=== PATIENT | female | born 1960 | race Hispanic/Latino ===

== ENCOUNTER → 2018-01-30 | Outpatient (CLI) | payer MEDICARE ==
[~2018-01-30] MED LIST: DIATR MEGLU/DIATRIZOATE SODIUM 30 ML BOTTLE ONE
== END | disposition home or self-care (01) ==
LOC: RAH 15:37
PROVIDERS: ATTEND Internal Medicine Gastroenterology
DX: K94.20 Gastrostomy complication, unspecified (principal)
CPT/HCPCS: 74018; Q9963

== ENCOUNTER → 2018-03-07 | Outpatient (CLI) | payer MEDICARE | END | disposition home or self-care (01) | LOC: RAH 15:54 | PROVIDERS: ATTEND Internal Medicine | DX: K94.20 Gastrostomy complication, unspecified (principal) | CPT/HCPCS: 74018; Q9963 ==

== ENCOUNTER 2020-09-21 11:05 | Day surgery (SDC) | payer MEDICARE ==
[2020-09-21] VITALS (10 sets, daily range): BP systolic 116–144; BP diastolic 70–88
[~2020-09-21] VITALS: Ht 160 cm; Wt 72.6 kg
[2020-09-21] MEDS ORDERED: PROPOFOL 10 MG/ML 20ML VIAL IV ONE ×2 (12:16)
[2020-09-21] MEDS ORDERED: SODIUM CHLORIDE 0.9% 1000ML 1,000 ML IV ONE (12:54)
[2020-09-21] MEDS ORDERED: INSU100V12 SQ (13:20)
[2020-09-21] MEDS ORDERED: AMLO-258 PO (13:20)
[2020-09-21] MEDS ORDERED: ATOR40TA71 PO (13:20)
== END 2020-09-21 13:12 | disposition home or self-care (01) ==
LOC: DAH 11:05 → ENDO 11:05
PROVIDERS: ATTEND Internal Medicine Gastroenterology
DX: K29.50 Unspecified chronic gastritis without bleeding (principal); Z20.828 Contact with and (suspected) exposure to other viral communicable diseases; K20.90 Esophagitis, unspecified without bleeding; I10 Essential (primary) hypertension; E11.9 Type 2 diabetes mellitus without complications; E66.9 Obesity, unspecified; Z86.73 Personal history of transient ischemic attack (TIA), and cerebral infarction without residual deficits; Z90.710 Acquired absence of both cervix and uterus; Z79.899 Other long term (current) drug therapy; Z68.32 Body mass index [BMI] 32.0-32.9, adult
CPT/HCPCS: 43239; 82948; 88305; 88342; A4215; A4221; A4222; A4223; A4606; A4620; A4649; A4657; A4663; C9803; J2704 ×2; J7030; U0003

== ENCOUNTER → 2020-10-08 | Outpatient (CLI) | payer MEDICARE ==
[~2020-10-08] MED LIST changes: +AMLO-258 PO; +ATOR40TA71 PO; +INSU100V12 SQ
== END | disposition home or self-care (01) ==
LOC: RAH 08:59
PROVIDERS: ATTEND Internal Medicine Gastroenterology
DX: K80.20 Calculus of gallbladder without cholecystitis without obstruction (principal); K31.6 Fistula of stomach and duodenum
CPT/HCPCS: 74150; Q9963 ×2

== ENCOUNTER 2022-11-14 06:58 | Day surgery (SDC) | payer OTHER ==
[2022-11-10 11:19] LABS: BASOPHILS % (AUTO) 0.5 % (0.0-5.0); EOSINOPHILS % (AUTO) 2.6 % (0.0-8.0); HEMATOCRIT 39.7 % (36-48); LYMPHOCYTES % (AUTO) 32.1 % (21.0-51.0); MEAN CORPUSCULAR HEMOGLOBIN 29.7 pg (27.0-33.0); MEAN CORPUSCULAR HGB CONC 32.7 g/dL (32.0-36.0); MEAN CORPUSCULAR VOLUME 90.6 fL (79-99); MONOCYTES % (AUTO) 6.5 % (3.0-13.0); NEUTROPHILS % (AUTO) 58.1 % (40.0-77.0); PLATELET COUNT (AUTO) 249 K/uL (130-400); RED BLOOD CELL COUNT(AUTO) 4.38 MIL/uL (4.00-5.50); RED CELL DISTRIBUTION WIDTH 12.5 % (11.0-15.5); WHITE BLOOD COUNT (AUTO) 8.4 K/uL (4.8-10.8)
[2022-11-10 11:27] LABS: CREATININE 1.2 mg/dL (0.5-1.5); POTASSIUM 4.2 mmol/L (3.5-5.1)
[2022-11-10 11:31] VITALS: BP 174/101
[2022-11-14] VITALS (17 sets, daily range): BP systolic 100–141; BP diastolic 51–119
[~2022-11-14] VITALS: Ht 157.5 cm; Wt 80.4 kg
[~2022-11-14 06:58] MED LIST changes: +BUPIVACAINE/PF 0.25% 10ML VIAL IJ ONE; +CEFAZOLIN SODIUM 2 GM VIAL IVPB SCH; +CLOP75TA32 PO; -DIATR MEGLU/DIATRIZOATE SODIUM 30 ML BOTTLE ONE; +DULA0.75 SQ; +LORA10TA7 PO; +LOSA100T58 PO; +METF-444 PO
[2022-11-14] MEDS ORDERED: 0.9%NACL 1000ML 1,000 ML IV ONE (07:36)
[2022-11-14] MEDS ORDERED: SUCCINYLCHOLINE 200MG/10ML SYR ONE (07:46)
[2022-11-14] MEDS ORDERED: LIDOCAINE PF 100MG/5ML (2%) SYRINGE 5ML ONE (07:46)
[2022-11-14] MEDS ORDERED: ROCURONIUM 10MG/1ML SYR 10 MG/ML ML ONE (07:47)
[2022-11-14] MEDS ORDERED: FENTANYL CITRATE PF 50 MCG/1 ML 2ML VIAL ONE (07:47)
[2022-11-14] MEDS ORDERED: GLYCOPYRROLATE 1 MG/5 ML SYRINGE ONE (07:47)
[2022-11-14] MEDS ORDERED: PROPOFOL 10 MG/ML 20ML VIAL IV ONE (07:47)
[2022-11-14] MEDS ORDERED: PHENYLEPHRINE HCL 10 MG/ML 1ML VIAL IV ONE (07:49)
[2022-11-14] MEDS ORDERED: CEFAZOLIN SODIUM 2 GM VIAL IVPB ONE (08:10)
[2022-11-14] MEDS ORDERED: NEOSTIGMINE 5MG/5ML SYR IV ONE (08:39)
[2022-11-14] MEDS ORDERED: ONDANSETRON 4MG INJ ONE (08:39)
[2022-11-14] MEDS ORDERED: IBUPROFEN 800 MG TAB PO SCH (11:00)
[2022-11-14] MEDS ORDERED: HYDROMORPHONE 1 MG INJ ONE (11:25)
[2022-11-14] MEDS ORDERED: HYDROMORPHONE 0.5 MG SYG (0.5MG/0.5ML) IVP SCH (12:00)
== END 2022-11-14 12:08 | disposition home or self-care (01) ==
LOC: DAH 06:58 → UNDOADMIN 06:58 → DAHIP 06:58 → EDSTATUS 09:00 → DAH 12:08
PROVIDERS: ATTEND Surgery
DX: K31.6 Fistula of stomach and duodenum (principal); Z20.822 Contact with and (suspected) exposure to COVID-19; I10 Essential (primary) hypertension; E78.5 Hyperlipidemia, unspecified; E11.9 Type 2 diabetes mellitus without complications; Z86.73 Personal history of transient ischemic attack (TIA), and cerebral infarction without residual deficits; Z79.899 Other long term (current) drug therapy; Z79.84 Long term (current) use of oral hypoglycemic drugs
CPT/HCPCS: 93005; 87426; 80048; 85025; 36415; 43870; 82948; A6260; A4663; A4452; J3010; J1170; J0330; J3490 ×2; J2710; J7030; J2001; J2704; J2405; J2370; J0690 ×3; A4215; A4223; A4222; A4221

== ENCOUNTER → 2022-12-07 | Outpatient (CLI) | payer OTHER ==
[~2022-12-07] MED LIST changes: -BUPIVACAINE/PF 0.25% 10ML VIAL IJ ONE; -CEFAZOLIN SODIUM 2 GM VIAL IVPB SCH
== END | disposition home or self-care (01) ==
LOC: RAH 11:22
DX: Z12.31 Encounter for screening mammogram for malignant neoplasm of breast (principal)
CPT/HCPCS: 77067

== ENCOUNTER → 2024-05-15 | Outpatient (CLI) | payer OTHER ==
[~2024-05-15] MED LIST changes: -LOSA100T58 PO; +LOSA100T59 PO
== END | disposition home or self-care (01) ==
LOC: RAH 10:00
PROVIDERS: ATTEND Nurse Practitioner Family
DX: Z12.31 Encounter for screening mammogram for malignant neoplasm of breast (principal); R92.333 Mammographic heterogeneous density, bilateral breasts; K76.0 Fatty (change of) liver, not elsewhere classified; R94.5 Abnormal results of liver function studies; R16.0 Hepatomegaly, not elsewhere classified; K80.20 Calculus of gallbladder without cholecystitis without obstruction; R92.30 Dense breasts, unspecified
CPT/HCPCS: 76705; 77067

== ENCOUNTER → 2024-08-08 | Outpatient (CLI) | payer OTHER ==
--- NOTE | 2024-08-08 16:40 | HMCIMG ---
CHEST 2VWS REASON: CHOLELITHASIS WITHOUT OBSTRUCTION COMPARISON: 10/18/2022 FINDINGS: Two views of the chest were obtained. Lungs are clear. Heart size is normal. There is no pulmonary vascular congestion. Mediastinum and bony thorax appear unremarkable. IMPRESSION: Normal two view chest x-ray.
== END | disposition home or self-care (01) ==
LOC: RAH 16:03
PROVIDERS: ATTEND Internal Medicine
DX: K80.20 Calculus of gallbladder without cholecystitis without obstruction (principal); K76.0 Fatty (change of) liver, not elsewhere classified
CPT/HCPCS: 71046

== ENCOUNTER 2024-12-12 06:13 | Day surgery (SDC) | payer OTHER ==
[2024-12-11 15:05] LABS: BASOPHILS # (AUTO) 0.07 K/uL (0.00-0.20); BASOPHILS % (AUTO) 0.7 % (0.0-5.0); EOSINOPHILS # (AUTO) 0.27 K/uL (0.00-0.70); EOSINOPHILS % (AUTO) 2.6 % (0.0-8.0); HEMATOCRIT 38.5 % (36-48); IMMATURE GRANULOCYTE ABSOLUTE 0.05 K/uL (0-1); LYMPHOCYTES # (AUTO) 3.4 K/uL (1.0-4.8); LYMPHOCYTES % (AUTO) 32.8 % (21.0-51.0); MEAN CORPUSCULAR HEMOGLOBIN 29.4 pg (27.0-33.0); MEAN CORPUSCULAR HGB CONC 33.2 g/dL (32.0-36.0); MEAN CORPUSCULAR VOLUME 88.5 fL (79-99); MONOCYTES # (AUTO) 0.7 K/uL (0.1-1.0); MONOCYTES % (AUTO) 6.3 % (3.0-13.0); NEUTROPHILS # (AUTO) 5.9 K/uL (1.8-7.7); NEUTROPHILS % (AUTO) 57.1 % (40.0-77.0); PLATELET COUNT (AUTO) 261 K/uL (130-400); RED BLOOD CELL COUNT(AUTO) 4.35 MIL/uL (4.00-5.50); RED CELL DISTRIBUTION WIDTH 13.1 % (11.0-15.5); WHITE BLOOD COUNT (AUTO) 10.3 K/uL (4.8-10.8)
[2024-12-11 15:12] LABS: CREATININE 1.2 mg/dL (0.5-1.0); POTASSIUM 4.3 mmol/L (3.5-5.1)
[2024-12-11 15:14] LABS: INR 1.03 (0.85-1.15); PROTHROMBIN TIME 10.9 SEC (9.6-11.6)
[2024-12-11 15:16] LABS: PARTIAL THROMBOPLASTIN TIME 25.3 SEC (26.3-35.5)
[2024-12-11 15:51] VITALS: BP 185/100; PULSE 85; RESP 18; TEMP 97.9
--- NOTE | 2024-12-11 15:56 | NUR ---
report pt reported she has only had breakfast. as per dr james garcia for pt to have dinner then clear liquids after that until midnight. pt and sister given instructions and voiced understanding
[2024-12-12] VITALS (16 sets, daily range): BP systolic 82–119; BP diastolic 39–65; PULSE 52–82; RESP 6–16; TEMP 97–97.5
[~2024-12-12] VITALS: Ht 157.5 cm; Wt 80.0 kg
[~2024-12-12 06:13] MED LIST changes: -DULA0.75 SQ; -INSU100V12 SQ; +INSU300I SQ; +LINA145C PO; -LORA10TA7 PO; +trulicity SQ
[2024-12-12] MEDS: ceFAZolin SODIUM 2 GM VIAL ONE (06:25)
[2024-12-12] MEDS: 0.9%NACL 1000ML 1,000 ML IV ONE (06:25)
[2024-12-12] MEDS ORDERED: 0.9%NACL 1000ML 1,000 ML IV SCH (06:30)
[2024-12-12] MEDS ORDERED: FAMOTIDINE 20MG VIAL IV ONE (06:53)
[2024-12-12] MEDS ORDERED: acetaMINOPHEN 100 ML ONE (06:53)
[2024-12-12] MEDS ORDERED: ketaMINE 50MG/ML SYRINGE 50 MG/ML DISP.SYRIN ONE (06:57)
[2024-12-12] MEDS ORDERED: proPOFol 10 MG/ML 20ML VIAL IV ONE (07:07)
[2024-12-12] MEDS ORDERED: LIDOCAINE PF 100MG/5ML (2%) SYRINGE 5ML ONE (07:07)
[2024-12-12] MEDS ORDERED: rocuRONium bROMide 10MG/1ML 5ML VL ONE (07:08)
[2024-12-12] MEDS ORDERED: FENTanyl CITRate PF 50 MCG/1 ML 2ML VIAL ONE (07:08)
[2024-12-12] MEDS ORDERED: INDOCYANINE GREEN 25 MG VIAL IJ ONE (08:04)
[2024-12-12] MEDS ORDERED: dexaMETHasone SOD PHOSPHATE 10MG/ML 1ML VIAL ONE (08:16)
[2024-12-12] MEDS ORDERED: ondanSETRON 4MG INJ ONE (08:16)
[2024-12-12] MEDS ORDERED: BUPIvacaine/PF 0.25% 30ML VIAL IJ ONE (08:21)
[2024-12-12] MEDS ORDERED: phenylEPHRINE HCL 10 MG/ML 1ML VIAL IV ONE (08:27)
[2024-12-12] MEDS: ceFAZolin SODIUM 2 GM VIAL IVPB ONE (08:35)
[2024-12-12] MEDS ORDERED: NEOSTIGMINE METHYLSULFATE 1MG/ML IV ONE (08:54)
[2024-12-12] MEDS ORDERED: GLYCOPYRROLATE 0.2 MG/ML 5 ML VIAL ONE (08:54)
--- NOTE | 2024-12-12 09:40 | OP ---
Operative Note: DATE OF PROCEDURE: 12/12/24 SURGEON: TIM BEY MD LEGAL STENOGRAPHER: Anshu Bey MD PA-C ANESTHESIA: General and local ANESTHESIOLOGIST/METAL BUILDING ASSEMBLER: [facility] anesthesia team PREOPERATIVE DIAGNOSIS: Symptomatic cholelithiasis POSTOPERATIVE DIAGNOSIS: As above SYNOPSIS: Cholecystectomy performed without incident PROCEDURE: Robotic assisted cholecystectomy with use of IC-Green and firefly visual technology for intraoperative cholangiogram ESTIMATED BLOOD LOSS: min, <30cc INDICATIONS: As above DESCRIPTION OF PROCEDURE: After standard precautions and preparations were undertaken a Veress needle and optical trocar were used to enter the abdominal cavity. All other instruments were placed under direct vision. The robotic system was docked in the standard fashion. We retracted the gallbladder cephalad and began dissecting around the infundibulum. A critical view of safety was achieved identified a single cystic duct and artery. The structures were isolated and clipped and divided. Prior to clipping the duct we utilized IC green and firefly visual technology to verify the ductal anatomy and we are able to trace the cystic duct back to the junction of the common hepatic and common bile duct and no signs of any filling defects. Monopolar cautery was used to separate the gallbladder from attachments to the gallbladder fossa. At the end of the case all instrument counts were verified as correct including needles and sponges. Patient was hemostatic with no signs of bile leak and the clips were in place. The specimen was removed from the one of the trocar sites in an Endo-Catch bag. Patient tolerated the procedure well. TIM BEY MD Dec 12, 2024 09:40
[2024-12-12] MEDS ORDERED: SUGAMMADEX SODIUM 200 MG/2 ML VIAL IV ONE (09:42)
[2024-12-12] MEDS: ePHEDrine SULFate 50 MG/ML AMPULE ONE (10:11)
--- NOTE | 2024-12-12 11:12 | NUR ---
Full and complete discharge instructions given to Patient and Family both verbally and in writing. Explained Surgical procedure precautions and follow up. Voided 400 mls clear yellow urine x 1. All Lap sites are clean and dry. Patient denies c/o pain or issue. All questions answered. PIV removed with catheter tip intact. Home with Family W/C to POV.
== END 2024-12-12 11:14 | disposition home or self-care (01) ==
LOC: DAH 06:13
PROVIDERS: ATTEND Surgery
DX: K80.10 Calculus of gallbladder with chronic cholecystitis without obstruction (principal); R10.10 Upper abdominal pain, unspecified; I10 Essential (primary) hypertension; E11.9 Type 2 diabetes mellitus without complications; R03.0 Elevated blood-pressure reading, without diagnosis of hypertension; K76.0 Fatty (change of) liver, not elsewhere classified; E78.00 Pure hypercholesterolemia, unspecified; K21.9 Gastro-esophageal reflux disease without esophagitis; Z86.0100 Personal history of colon polyps, unspecified; Z90.710 Acquired absence of both cervix and uterus; Z86.73 Personal history of transient ischemic attack (TIA), and cerebral infarction without residual deficits; Z79.01 Long term (current) use of anticoagulants; Z79.899 Other long term (current) drug therapy
CPT/HCPCS: 80048; 85025; 85610; 85730; 86850; 86900; 86901; 36415; 47563; 82948 ×2; 88304; A4663; J7030 ×2; A4215 ×2; J3490 ×5; J3010; J1100; J0665; J2003; J2704; J2405; J2710; J2371; J0690 ×2; A4930; A4222; A4221; A4216; A4223 ×2; A4600

== ENCOUNTER → 2025-05-16 | Outpatient (CLI) | payer OTHER ==
[~2025-05-16] MED LIST changes: +MAGN400T25 PO; +MECL-226 PO; -METF-444 PO; +THIA100C PO
== END | disposition home or self-care (01) ==
LOC: RAH 11:43
DX: Z12.31 Encounter for screening mammogram for malignant neoplasm of breast (principal)
CPT/HCPCS: 77067

== ENCOUNTER → 2025-06-30 | Outpatient (CLI) | payer OTHER ==
[~2025-06-30] MED LIST changes: +IOHEXOL-350 75 ML VIAL IV ONE
--- NOTE | 2025-07-01 11:26 | HMCIMG ---
EXAM: CT Abdomen and Pelvis with IV contrast CLINICAL HISTORY: Unspecified abdominal pain TECHNIQUE: Axial computed tomography images of the abdomen and pelvis with intravenous contrast. CONTRAST: 75 mL Omnipaque 350. COMPARISON: 04/08/2025. FINDINGS: LUNG BASES: Mild bibasilar dependent atelectasis. No pleural effusion. LIVER: Diffuse hepatic steatosis. No focal lesion. GALLBLADDER AND BILE DUCTS: Gallbladder surgically absent. No intrahepatic or extrahepatic biliary dilatation. PANCREAS: Normal in size and enhancement. No ductal dilatation or peripancreatic inflammation. SPLEEN: Normal in size and attenuation. ADRENAL GLANDS: Unremarkable. KIDNEYS, URETERS AND BLADDER: Bilateral renal cortical cysts. No hydronephrosis or calculus. Urinary bladder is suboptimally distended with mild diffuse wall thickening. STOMACH AND BOWEL: Small hiatus hernia. Uncomplicated colonic diverticula. A component of mild constipation. No bowel obstruction or wall thickening. Normal appendix. PERITONEUM: No free fluid or free air. REPRODUCTIVE ORGANS: Post-hysterectomy status. VASCULATURE: Mild atheromatous wall calcifications of the abdominal aorta and iliac arteries. No aneurysm. MUSCULOSKELETAL STRUCTURES: Mild diastasis recti with overlying skin thickening. Multilevel mild spondylosis. No acute osseous abnormality. IMPRESSION: Diffuse hepatic steatosis. Post-cholecystectomy and post-hysterectomy status. Stable bilateral renal cortical cysts. No urinary calculi. No hydronephrosis. Mild urinary bladder wall thickening; correlate for cystitis. Small hiatus hernia. No bowel obstruction or inflammation. Normal appendix. Uncomplicated colonic diverticulosis with a component of mild constipation. /[place]
== END | disposition home or self-care (01) ==
LOC: RAH 08:48
PROVIDERS: ATTEND Internal Medicine
DX: R10.9 Unspecified abdominal pain (principal); K57.30 Diverticulosis of large intestine without perforation or abscess without bleeding; K59.00 Constipation, unspecified; K44.9 Diaphragmatic hernia without obstruction or gangrene; N28.1 Cyst of kidney, acquired; N32.89 Other specified disorders of bladder; K76.0 Fatty (change of) liver, not elsewhere classified; Z90.49 Acquired absence of other specified parts of digestive tract; Z90.710 Acquired absence of both cervix and uterus
CPT/HCPCS: 74177; Q9967